=== PATIENT | male | born 1960 | race African-American/Black ===

== ENCOUNTER 2016-11-17 17:22 | Emergency (ER) | payer OTHER ==
[2016-11-17 17:32] VITALS: BP 119/82; PULSE 100; TEMP 98; BMI 27.8
--- NOTE | 2016-11-17 19:05 | PDOC ---
History of Present Illness - General Chief Complaint: Back Pain Stated Complaint: BACK PAIN Time Seen by Provider: 11/17/16 19:04 History Source: Patient Exam Limitations: No Limitations - History of Present Illness Initial Comments: 11/17/16 19:40 My chief complaint left lower back pain since moving furniture this morning History of present illness: Patient is a 55-year-old male here today complaining of left lower back pain with muscle spasms since moving furniture this morning and is home. Patient denies any radiation of pain down the legs or any saddle anesthesia or any incontinency. Patient did not take anything for pain. Patient reports having previous back issues in the past. Patient reports that is been difficult to try to stand up straight due to spasm and lower back. Patient is not driving is here with his who is driving. 11/17/16 19:42 11/17/16 19:44 Occurred: reports: this morning Severity: reports: severe (left sided lower back pain ) Pain Location: reports: back (left sided lower back ) Method of Injury: Yes: other (moving furniture this morning ) Modifying Factors: improves with: None Loss of Consciousness: no loss of consciousness Associated Symptoms (Fall): denies symptoms Past History - Past Medical History Allergies/Adverse Reactions: Allergies Allergy/AdvReac Type Severity Reaction Status Date / Time No Known Allergies Allergy Verified 11/17/16 17:31 Home Medications: Ambulatory Orders Cyclobenzaprine HCl [Flexeril 10 mg] 10 mg PO Q8H PRN #21 tablet 11/17/16 Naproxen [Naprosyn -] 500 mg PO BID PRN #14 tablet 11/17/16 Other medical history: DENIES - Surgical History Abdominal Surgery: Yes (? HERNIA) - Psycho/Social/Smoking Cessation Hx Anxiety: No Suicidal Ideation: No Smoking History: Current every day smoker Number of Cigarettes Smoked Daily: 6 Information on smoking cessation initiated: Yes 'Breaking Loose' booklet given: 11/17/16 Hx Alcohol Use: No Drug/Substance Use Hx: No Substance Use Type: None Review of Systems - Review of Systems Able to Perform ROS?: Yes Constitutional: No: Symptoms Reported HEENTM: No: Symptoms Reported Respiratory: No: Symptoms reported Cardiac (ROS): No: Symptoms Reported ABD/GI: No: Symptoms Reported : No: Symptoms Reported Musculoskeletal: Yes: Back Pain (left lateral lower back tenderness ), Muscle Pain (left lower lateral muscle tenderness) Integumentary: No: Symptoms Reported Neurological: No: Symptoms reported *Physical Exam - Vital Signs Last Vital Signs Temp Pulse Resp BP Pulse Ox 98 F 100 H 18 119/82 98 11/17/16 17:30 11/17/16 17:30 11/17/16 17:30 11/17/16 17:30 11/17/16 17:30 - Physical Exam General Appearance: Yes: Appropriately Dressed Respiratory/Chest: positive: Lungs Clear, Normal Breath Sounds. negative: Chest Tender, Respiratory Distress Cardiovascular: positive: Regular Rhythm, Regular Rate, S1, S2 Musculoskeletal: positive: Decreased Range of Motion (from waist ), Other (left lower back muscular pain ). negative: CVA Tenderness, CVA Tenderness (R), CVA Tenderness (L), Vertebral Tenderness Extremity: positive: Normal Capillary Refill, Normal Inspection, Normal Range of Motion Integumentary: positive: Normal Color Neurologic: positive: Alert, Normal Response, Motor Strength 5/5 (lower back ), Respond to painful stimul (legs b/l ), Responsive. negative: Numbness, Sensory Deficit (legs b/l ) Deep Tendon Reflexes: Knee (L): 4+, Knee (R): 4+ Medical Decision Making - Medical Decision Making 11/17/16 19:21 11/17/16 19:44 Patient is a 55-year-old male here today complaining of left lower back pain with muscle spasms since moving furniture this morning and is home. Patient denies any radiation of pain down the legs or any saddle anesthesia or any incontinency. Patient did not take anything for pain. Patient reports having previous back issues in the past. Patient reports that is been difficult to try to stand up straight due to spasm and lower back. Patient is not driving is here with his who is driving left lower back strain with muscle spasm PLAN: toradol 60 mg IM valium 5 mg IM naprosyn 500 mg bid prn pain # 14 tabs flexeril 10 mg q8 hrs prn muscle spasm # 21 tabs follow up with orthopedist next week if symptoms persist *DC/Admit/Observation/Transfer Diagnosis at time of Disposition: Muscle spasm of back Low back strain Qualifiers: Encounter type: initial encounter Qualified Code(s): S39.012A - Strain of muscle, fascia and tendon of lower back, initial encounter - Discharge Dispostion Disposition: HOME Condition at time of disposition: Stable - Referrals Referrals: Zaki Brown MD [Staff Physician] - - Patient Instructions Additional Instructions: Avoid any strenuous activities or exercise Follow-up with orthopedist next week for further evaluation Return to emergency room if pain worsens any radiation of pain down the legs or any numbness of groin area or any other symptoms develop Patient voiced understanding of discharge instructions and all questions were answered
[2016-11-17] MEDS ORDERED: diazePAM 5 MG TABLET PO ONE (19:17)
[2016-11-17] MEDS ORDERED: KETOROLAC TROMETHAMINE 60 MG/2 ML VIAL IM ONE (19:17)
[2016-11-17] MEDS ORDERED: KETOROLAC TROMETHAMINE 60 MG/2 ML VIAL ONE (19:19)
[2016-11-17] MEDS ORDERED: diazePAM 5 MG TABLET ONE (19:20)
== END 2016-11-17 19:56 | disposition home or self-care (01) ==
LOC: JERFT 17:22
PROC: 3E0233Z Introduction of Anti-inflammatory into Muscle, Percutaneous Approach (ICD-10-PCS; principal; 2016-11-17)
DX: S39.012A Strain of muscle, fascia and tendon of lower back, initial encounter (principal); X50.0XXA Overexertion from strenuous movement or load, initial encounter; Y93.E9 Activity, other interior property and clothing maintenance; Y92.038 Other place in apartment as the place of occurrence of the external cause
CPT/HCPCS: 99281-25